=== PATIENT | female | born 1995 | race African-American/Black ===

== ENCOUNTER 2024-05-13 17:54 | Emergency (ER) | payer MEDICAID ==
[~2024-05-13] VITALS: Ht 167.6 cm; Wt 128.0 kg
[2024-05-13 18:02] VITALS: O2SAT 99
[2024-05-13 18:21] VITALS: O2SAT 99
[2024-05-13 20:19] LABS: BASOPHILS % 0.2 % (0.0-2.0); EOSINOPHILS % 0.5 % (0.0-5.0); HEMATOCRIT. 38.3 % (36.0-48.0); HEMOGLOBIN. 12.8 g/dL (12.0-16.0); LYMPHOCYTES % 28.5 % (20.0-50.0); MEAN CORPUSCULAR HEMOGLOBIN 28.8 pg (28.0-32.0); MEAN CORPUSCULAR HGB CONC 33.4 g/dL (31.0-37.0); MEAN CORPUSCULAR VOLUME 86.1 fL (81.0-99.0); MEAN PLATELET VOLUME 8.7 fl (7.4-10.4); MONOCYTES % 10.9 % (2.0-8.0); NEUTROPHILS % 59.9 % (40.0-76.0); PLATELET 291 x1000/uL (130-400); RED BLOOD CELL COUNT 4.44 mill/uL (4.2-5.4); RED CELL DISTRIBUTION WIDTH 13.2 % (11.6-14.6); WHITE BLOOD COUNT 4.6 x1000/uL (4.5-11.0)
[2024-05-13 20:25] LABS: CHLORIDE 107 mEq/L (98-107); POTASSIUM 3.5 mEq/L (3.5-5.1); SODIUM 140 mEq/L (136-145)
[2024-05-13 20:26] LABS: CALCIUM 9.6 mg/dL (8.7-10.4); CARBON DIOXIDE 26 mEq/L (21-32)
[2024-05-13 20:31] LABS: CREATININE 0.7 mg/dL (0.6-1.0); GLUCOSE 86 mg/dL (70-105); UREA NITROGEN BLOOD 10 mg/dL (9-23)
[2024-05-13 20:33] LABS: ALANINE AMINOTRANSFERASE 12 IU/L (10-49); ALBUMIN 4.1 g/dL (3.2-4.8); ASPARTATE AMINOTRANSFERASE 24 IU/L (<34); BILIRUBIN TOTAL 0.2 mg/dL (0.1-1.0); PROTEIN TOTAL 8.3 g/dL (6.0-8.3)
[2024-05-13 20:35] LABS: BILIRUBIN DIRECT < 0.1 mg/dL (<=3.0)
[2024-05-13] MEDS ORDERED: TOPUD MT (21:12)
[2024-05-13] MEDS ORDERED: NAPR-679 MT (21:12)
[2024-05-13] MEDS ORDERED: CYCL5TAB3 MT (21:12)
[2024-05-13 21:15] VITALS: BP 154/85; PULSE 81; RESP 16; TEMP 98.3
[2024-05-13] MEDS: CYCLOBENZAPRINE 10MG TABLET PO ONE (21:15)
[2024-05-13] MEDS: ACETAMINOPHEN 325MG TABLET PO ONE (21:15)
[2024-05-13] MEDS: KETOROLAC 30MG/ML VIAL IM ONE (21:15)
== END 2024-05-13 22:02 | disposition home or self-care (01) ==
LOC: ER 17:54
DX: M25.512 Pain in left shoulder (principal); M25.562 Pain in left knee; R10.32 Left lower quadrant pain
CPT/HCPCS: 80076; 80048; 85025; 86850; 86900; 86901; 36415; 96372; 99283; J1885; Z7610